=== PATIENT | male | born 2000 | race Caucasian/White ===

== ENCOUNTER 2024-03-19 13:00 | Emergency (ER) | payer SELFPAY ==
[~2024-03-19] VITALS: Ht 167.6 cm; Wt 73.0 kg
[2024-03-19 13:04] VITALS: BP 114/68; PULSE 66; RESP 16; TEMP 98.2; O2SAT 100
[2024-03-19] MEDS ORDERED: METHOCARBAMOL 500MG TABLET PO ONE (14:00)
[2024-03-19] MEDS ORDERED: IBUPROFEN 600MG TABLET PO ONE (14:00)
[2024-03-19] MEDS ORDERED: IBUP-2029 MT (14:31)
[2024-03-19] MEDS ORDERED: METH-653 MT (14:31)
== END 2024-03-19 15:58 | disposition home or self-care (01) ==
LOC: ER 13:00
DX: S29.012A Strain of muscle and tendon of back wall of thorax, initial encounter (principal); X58.XXXA Exposure to other specified factors, initial encounter; Y93.89 Activity, other specified; Y92.89 Other specified places as the place of occurrence of the external cause; Y99.8 Other external cause status
CPT/HCPCS: 71045; 93005; 99283